=== PATIENT | female | born 1965 | race Caucasian/White ===

== ENCOUNTER → 2016-05-27 | Outpatient (CLI) | payer MEDICAID ==
--- NOTE | 2016-05-27 13:40 | DX ---
Left Knee, Three Views, 12:53 p.m. Clinical History: 51-year-old female with left knee pain after a fall several days ago. ICD-10 Diagnostic Code: S83.412 A.. Comparison Study: None. Findings: Bone mineralization is preserved. There is no acute fracture or dislocation. There is mild degenerative pinnacling of the lateral tibial spine and also involving the posterior patella, and on the sunrise view there is mild lateral patellofemoral joint space narrowing with slight lateral michelle lar tilting. It is equivocal whether there is some fluid in the suprapatellar bursa. There is no loos e osteochondral body. If there is further clinical concern regarding the suspected medial collateral ligament sprain injury, MR imaging could be considered. Impression: There is no acute osseous abnormality.
--- NOTE | 2016-05-27 13:43 | DX ---
Right Foot, Three Views, 12:47 p.m. Clinical History: 51-year-old female with right foot pain after a fall several days ago. ICD-10 Diagnostic Code: M79.671. Comparison Study: None. Findings: Bone mineralization is preserved. There is no acute fracture or dislocation. There is a bip artite lateral great toe sesamoid bone. The tarsometatarsal alignment is anatomic. There is mild pes cavum. There is a large plantar calcaneal degenerative enthesophyte. The subtalar joint is normal. Impression: There is no acute or subacute osseous abnormality identified.
== END ==
LOC: FIMAGING 12:35
PROVIDERS: ATTEND Family Medicine
DX: M79.671 Pain in right foot (principal); M25.562 Pain in left knee

== ENCOUNTER → 2017-03-24 | Outpatient (CLI) | payer MEDICAID | LOC: FIMAGING 14:48 | PROVIDERS: ATTEND Emergency Medicine | DX: R07.89 Other chest pain (principal); M25.532 Pain in left wrist; M79.642 Pain in left hand; M25.551 Pain in right hip; R06.00 Dyspnea, unspecified; W19.XXXA Unspecified fall, initial encounter; R91.8 Other nonspecific abnormal finding of lung field; M85.442 Solitary bone cyst, left hand; M19.042 Primary osteoarthritis, left hand; R93.6 Abnormal findings on diagnostic imaging of limbs; Z98.84 Bariatric surgery status; Z96.0 Presence of urogenital implants ==